=== PATIENT | female | born 1980 | race Caucasian/White ===

== ENCOUNTER 2019-07-16 07:10 | Day surgery (SDC) | payer BC ==
[2019-07-16] MEDS ORDERED: Ondansetron 4 MG/2 ML SDV IVPUSH ONE (07:33)
[2019-07-16] MEDS ORDERED: HYDROmorphone 0.5 MG/0.5 ML Syringe IVPUSH ONE ×2 (07:33→08:44)
[2019-07-16] MEDS ORDERED: Sodium Chloride 0.9% 10 ML Syringe FLUSH PRN (07:33)
[2019-07-16] MEDS ORDERED: Sodium Chloride 0.9% 1,000 ML IV SCH ×2 (07:45→10:45)
--- NOTE | 2019-07-16 09:41 | EDM.PDOC ---
ED HPI GENERAL MEDICAL PROBLEM - General Chief Complaint: Abdominal Pain Stated Complaint: SEVERE ABDOMINAL PAIN Time Seen by Provider: 07/16/19 07:25 Source of Information: Reports: Patient, RN Notes Reviewed - History of Present Illness INITIAL COMMENTS - FREE TEXT/NARRATIVE: 38-year-old female started having upper abdominal pain about 8-10 days ago. Has become much more severe over the past 2 or 3 days. She was seen at [facility] yesterday afternoon or early evening and was informed "labs were normal" at that time. However the pain continued to worsen during the night and she has been vomiting now for the last day or so as well. She vomited bile during the night and again this morning. No fever or chills. The pain does radiate to her back. She still does have her gallbladder. No chest pain or difficulty breathing. Right Upper Abdomen Pain Score (Numeric/FACES): 9 - Related Data Allergies Allergy/AdvReac Type Severity Reaction Status Date / Time No Known Allergies Allergy Verified 07/16/19 07:23 Home Meds: Home Meds FLUoxetine HCl [Prozac] 20 mg PO DAILY 07/16/19 [History] Past Medical History Psychiatric History: Reports: Anxiety - Past Surgical History Musculoskeletal Surgical History: Reports: ORIF Social & Family History - Tobacco Use Smoking Status *Q: Never Smoker - Caffeine Use Caffeine Use: Reports: Coffee - Recreational Drug Use Recreational Drug Use: No ED ROS GENERAL - Review of Systems Review Of Systems: See Below Constitutional: Reports: Chills. Denies: Fever HEENT: Denies: Sinus Problem, Throat Pain Respiratory: Denies: Shortness of Breath Cardiovascular: Denies: Chest Pain GI/Abdominal: Reports: Abdominal Pain (severe, upper abd), Nausea, Vomiting. Denies: Diarrhea : Reports: No Symptoms Musculoskeletal: Reports: Back Pain Skin: Reports: No Symptoms Neurological: Reports: No Symptoms ED EXAM, GI/ABD - Physical Exam Exam: See Below General Appearance: Alert, Moderate Distress Eyes: Bilateral: Normal Appearance Throat/Mouth: Normal Inspection, Normal Oropharynx Head: Atraumatic Neck: Supple Respiratory/Chest: No Respiratory Distress, Lungs Clear, Normal Breath Sounds Cardiovascular: Regular Rate, Rhythm GI/Abdominal Exam: Soft, Guarding, Tender (Markedly tenderness right upper quadrant and upper mid abdomen, mild tenderness mid abdomen and left abdomen. Lower abdomen nontender). No: Rebound (Mild) Back Exam: No: CVA Tenderness (L), CVA Tenderness (R) Extremities: Normal Inspection, Normal Range of Motion Neurological: Alert, Oriented, No Motor/Sensory Deficits Skin Exam: Warm, Dry, Normal Color Course - Vital Signs Last Recorded V/S: Last Vital Signs Temp 99.1 F 07/16/19 17:30 Pulse 65 07/16/19 17:31 Resp 16 07/16/19 17:30 BP 104/56 L 07/16/19 19:03 Pulse Ox 95 07/16/19 17:31 - Orders/Labs/Meds Orders: Active Orders 24 hr Category Date Time Status Ready for Discharge [RC] PER UNIT ROUTINE Care 07/16/19 16:46 Active Labs: Laboratory Tests 07/16/19 07/16/19 07/16/19 Range/Units 07:40 07:40 07:40 WBC 10.22 H (3.98-10.04) K/mm3 RBC 4.24 (3.98-5.22) M/mm3 Hgb 12.0 (11.2-15.7) gm/dl Hct 36.6 (34.1-44.9) % MCV 86.3 (79.4-94.8) fl MCH 28.3 (25.6-32.2) pg MCHC 32.8 (32.2-35.5) g/dl RDW Std Deviation 40.7 (36.4-46.3) fL Plt Count 239 (182-369) K/mm3 MPV 10.3 (9.4-12.3) fl Neutrophils % (Manual) 82 H (40-60) % Band Neutrophils % 10 (0-10) % Lymphocytes % (Manual) 6 L (20-40) % Atypical Lymphs % 0 % Monocytes % (Manual) 2 (2-10) % Eosinophils % (Manual) 0 L (0.7-5.8) % Basophils % (Manual) 0 L (0.1-1.2) Platelet Estimate Adequate RBC Morph Comment Normal Sodium 138 (136-145) mEq/L Potassium 3.8 (3.5-5.1) mEq/L Chloride 104 (98-107) mEq/L Carbon Dioxide 25 (21-32) mEq/L Anion Gap 12.8 (5-15) BUN 16 (7-18) mg/dL Creatinine 0.6 (0.55-1.02) mg/dL Est Cr Clr Drug Dosing TNP Estimated GFR (MDRD) > 60 (>60) mL/min BUN/Creatinine Ratio 26.7 H (14-18) Glucose 148 H (74-106) mg/dL Calcium 9.4 (8.5-10.1) mg/dL Total Bilirubin 0.4 (0.2-1.0) mg/dL GGT 16 (5-55) U/L AST 17 (15-37) U/L ALT 29 (14-59) U/L Alkaline Phosphatase 58 (46-116) U/L C-Reactive Protein 5.3 H* (<1.0) mg/dL Total Protein 7.6 (6.4-8.2) g/dl Albumin 3.9 (3.4-5.0) g/dl Globulin 3.7 gm/dL Albumin/Globulin Ratio 1.1 (1-2) Lipase 86 (73-393) U/L Urine HCG, Qual (NEGATIVE) 07/16/19 Range/Units 11:33 WBC (3.98-10.04) K/mm3 RBC (3.98-5.22) M/mm3 Hgb (11.2-15.7) gm/dl Hct (34.1-44.9) % MCV (79.4-94.8) fl MCH (25.6-32.2) pg MCHC (32.2-35.5) g/dl RDW Std Deviation (36.4-46.3) fL Plt Count (182-369) K/mm3 MPV (9.4-12.3) fl Neutrophils % (Manual) (40-60) % Band Neutrophils % (0-10) % Lymphocytes % (Manual) (20-40) % Atypical Lymphs % % Monocytes % (Manual) (2-10) % Eosinophils % (Manual) (0.7-5.8) % Basophils % (Manual) (0.1-1.2) Platelet Estimate RBC Morph Comment Sodium (136-145) mEq/L Potassium (3.5-5.1) mEq/L Chloride (98-107) mEq/L Carbon Dioxide (21-32) mEq/L Anion Gap (5-15) BUN (7-18) mg/dL Creatinine (0.55-1.02) mg/dL Est Cr Clr Drug Dosing Estimated GFR (MDRD) (>60) mL/min BUN/Creatinine Ratio (14-18) Glucose (74-106) mg/dL Calcium (8.5-10.1) mg/dL Total Bilirubin (0.2-1.0) mg/dL GGT (5-55) U/L AST (15-37) U/L ALT (14-59) U/L Alkaline Phosphatase (46-116) U/L C-Reactive Protein (<1.0) mg/dL Total Protein (6.4-8.2) g/dl Albumin (3.4-5.0) g/dl Globulin gm/dL Albumin/Globulin Ratio (1-2) Lipase (73-393) U/L Urine HCG, Qual Negative (NEGATIVE) Meds: Medications Discontinued Medications Generic Name Dose Route Start Last Admin Trade Name Freq PRN Reason Stop Dose Admin Dexamethasone Confirm 07/16/19 12:21 Dexamethasone Administered 07/16/19 12:22 Dose 20 mg .ROUTE .STK-MED ONE Diphenhydramine HCl 25 mg 07/16/19 12:09 Benadryl IVPUSH 07/16/19 16:00 Q6H PRN pruritis Diphenhydramine HCl 25 mg 07/16/19 12:33 Benadryl IVPUSH 07/16/19 16:00 Q6H PRN Pruritis Famotidine Confirm 07/16/19 11:30 Pepcid Administered 07/16/19 11:31 Dose 20 mg .ROUTE .STK-MED ONE Fentanyl Confirm 07/16/19 11:12 Sublimaze Administered 07/16/19 11:13 Dose 250 mcg .ROUTE .STK-MED ONE Fentanyl 50 mcg 07/16/19 12:09 Sublimaze IVPUSH 07/16/19 16:00 Q5M PRN Pain Fentanyl 50 mcg 07/16/19 12:33 Sublimaze IVPUSH 07/16/19 16:00 Q5M PRN Pain Fentanyl Confirm 07/16/19 13:13 Sublimaze Administered 07/16/19 13:14 Dose 100 mcg .ROUTE .STK-MED ONE Hydromorphone HCl 0.5 mg 07/16/19 07:33 07/16/19 07:46 Dilaudid IVPUSH 07/16/19 07:34 0.5 mg ONETIME ONE Administration Hydromorphone HCl 0.5 mg 07/16/19 08:44 07/16/19 08:51 Dilaudid IVPUSH 07/16/19 08:45 0.5 mg ONETIME ONE Administration Hydromorphone HCl 0.5 mg 07/16/19 12:09 Dilaudid IVPUSH 07/16/19 16:00 Q15M PRN severe pain Hydromorphone HCl 0.5 mg 07/16/19 12:33 Dilaudid IVPUSH 07/16/19 16:00 Q15M PRN severe pain Hydromorphone HCl Confirm 07/16/19 13:01 Dilaudid Administered 07/16/19 13:02 Dose 0.5 mg .ROUTE .STK-MED ONE Sodium Chloride 1,000 mls @ 999 mls/hr 07/16/19 07:45 07/16/19 07:44 Normal Saline IV 999 mls/hr ONETIME [facility] Administration Piperacillin Sod/Tazobactam 100 mls @ 25 mls/hr 07/16/19 10:21 07/16/19 10:39 Sod 4.5 gm/ Sodium Chloride IV 07/16/19 14:20 25 mls/hr ONETIME ONE Administration Sodium Chloride 1,000 mls @ 150 mls/hr 07/16/19 10:45 07/16/19 10:38 Normal Saline IV 150 mls/hr ASDIRECTED [facility] Administration Lactated Ringer's 1,000 mls @ 999 mls/hr 07/16/19 11:10 07/16/19 11:20 Ringers, Lactated IV 07/16/19 12:10 999 mls/hr .BOLUS ONE Administration Lidocaine HCl Confirm 07/16/19 11:12 Xylocaine-Mpf 1% Administered 07/16/19 11:13 Dose 4 mls @ as directed .ROUTE .STK-MED ONE Lactated Ringer's Confirm 07/16/19 12:27 Ringers, Lactated Administered 07/16/19 12:28 Dose 1,000 mls @ as directed .ROUTE .STK-MED ONE Ketorolac Tromethamine Confirm 07/16/19 11:12 Toradol Administered 07/16/19 11:13 Dose 15 mg .ROUTE .STK-MED ONE Lidocaine HCl Confirm 07/16/19 11:13 07/16/19 12:19 Xylocaine-Mpf 1% Administered 07/16/19 11:14 34 ml Dose Administration 30 ml .ROUTE .STK-MED ONE Midazolam HCl Confirm 07/16/19 11:12 Versed 1 Mg/Ml Administered 07/16/19 11:13 Dose 2 mg .ROUTE .STK-MED ONE Ondansetron HCl 4 mg 07/16/19 07:33 07/16/19 07:45 Zofran IVPUSH 07/16/19 07:34 4 mg ONETIME ONE Administration Ondansetron HCl Confirm 07/16/19 11:12 Zofran Administered 07/16/19 11:13 Dose 4 mg .ROUTE .STK-MED ONE Ondansetron HCl 4 mg 07/16/19 12:09 Zofran IVPUSH 07/16/19 18:00 ONETIME PRN Nausea/Vomiting Oxycodone/Acetaminophen 1 tab 07/16/19 18:46 07/16/19 18:58 Percocet 325-5 Mg PO 1 tab Q6H PRN Administration Pain Propofol Confirm 07/16/19 11:11 Diprivan 20 Ml Administered 07/16/19 11:12 Dose 200 mg .ROUTE .STK-MED ONE Rocuronium [place] Confirm 07/16/19 11:12 Zemuron Administered 07/16/19 11:13 Dose 50 mg .ROUTE .STK-MED ONE Sodium Chloride 10 ml 07/16/19 07:33 07/16/19 07:47 Saline Flush FLUSH 10 ml ASDIRECTED PRN Administration Keep Vein Open - Re-Assessments/Exams Free Text/Narrative Re-Assessment/Exam: 07/16/19 10:12. White blood count did come back mildly elevated with a left shift, C reactive protein also elevated. Given a ALT, GGT lipase all normal. See reported labs for details. Dominant gallbladder has come back showing a thickened wall and gallbladder filled with material compatible with sludge, possible gallstones or even pus. Findings highly suspicious for acute cholecystitis. No biliary duct dilatation. See Radiology report for details. I have discussed this with Dr Recinos, double end production grinder for General Surgery. He has requested to have Dr Koko MD General Surgeon come over to see pt for planned cholecystectomy. I have notified patient, have ordered IV zosyn. She feels better after multiple doses of nausea and pain medication over the past 2-3 hours. 07/16/19 10:36. Discussed with Dr Sutherland, he is here to see patient at this time. He will be taking her to surgery. Departure - Departure Time of Disposition: 10:20 Disposition: DC/Tfer to [facility] Condition: Fair Clinical Impression: Cholecystitis - Discharge Information
--- NOTE | 2019-07-16 09:46 | US ---
Limited abdominal ultrasound: Multiple real-time images of the upper right abdomen were obtained. Visualized portions of the pancreas are within normal limits. Liver shows no discrete abnormality. Right kidney shows no hydronephrosis or mass and as a length of 11.3 cm. Inferior vena cava is patent. Portal vein is patent. Gallbladder is filled with material. Gallbladder wall is very thickened. No biliary duct dilatation is seen. Impression: 1. Gallbladder wall is thickened. Gallbladder is filled with material which could represent sludge, gallstones or even pus. Findings are highly suspicious for acute cholecystitis. 2. No biliary duct dilatation is seen. Other portions of the right upper quadrant abdominal ultrasound are unremarkable. Diagnostic code #5
[2019-07-16] MEDS ORDERED: Piperacillin/Tazobactam 4.5 GM in Sodium Chloride 0.9% 100 ML IV ONE (10:21)
[2019-07-16] MEDS ORDERED: Lactated Ringers 1,000 ML IV ONE (11:10)
[2019-07-16] MEDS ORDERED: Propofol 200 MG/20 ML SDV ONE (11:11)
[2019-07-16] MEDS ORDERED: Midazolam 1 MG/ML 2 ML SDV ONE (11:12)
[2019-07-16] MEDS ORDERED: Rocuronium 50 MG/5 ML Vial ONE (11:12)
[2019-07-16] MEDS ORDERED: Ondansetron 4 MG/2 ML SDV ONE (11:12)
[2019-07-16] MEDS ORDERED: Lidocaine 1% 4 ML ONE (11:12)
[2019-07-16] MEDS ORDERED: Ketorolac 15 MG/ML SDV ONE (11:12)
[2019-07-16] MEDS ORDERED: fentaNYL 250 MCG/5 ML SDV ONE (11:12)
[2019-07-16] MEDS ORDERED: Lidocaine 1% 30 ML SDV ONE (11:13)
[2019-07-16] MEDS ORDERED: Famotidine 20 MG/2 ML SDV ONE (11:30)
--- NOTE | 2019-07-16 11:35 | PCM.PREANE ---
Preanesthetic Assessment - Procedure Proposed Procedure: Laparoscopic Cholecystectomy - Anesthesia/Transfusion/Family Hx Anesthesia History: Prior Anesthesia Without Reaction Family History of Anesthesia Reaction: No - Review of Systems General: Fatigue, Chills Pulmonary: No Symptoms Cardiovascular: No Symptoms Gastrointestinal: Abdominal Pain (Severe), Nausea, Vomiting Neurological: No Symptoms Other: Reports: Depression, Anxiety - Physical Assessment NPO Status Date: 07/16/19 NPO Status Time: 02:00 Vital Signs: Last Vital Signs Temp 36.9 C 07/16/19 07:20 Pulse 69 07/16/19 07:20 Resp 20 07/16/19 07:20 BP 124/77 07/16/19 07:20 Pulse Ox 98 07/16/19 07:20 Height: 1.68 m Weight: 90.265 kg ASA Class: 2 Mental Status: Alert & Oriented x3 Airway Class: Mallampati = 2 Dentition: Reports: Normal Dentition Thyro-Mental Finger Breadths: 3 Mouth Opening Finger Breadths: 3 ROM/Head Extension: Full Lungs: Clear to Auscultation, Normal Respiratory Effort Cardiovascular: Regular Rate, Regular Rhythm - Lab Values: Laboratory Last Values WBC 10.22 K/mm3 (3.98-10.04) H 07/16/19 07:40 RBC 4.24 M/mm3 (3.98-5.22) 07/16/19 07:40 Hgb 12.0 gm/dl (11.2-15.7) 07/16/19 07:40 Hct 36.6 % (34.1-44.9) 07/16/19 07:40 MCV 86.3 fl (79.4-94.8) 07/16/19 07:40 MCH 28.3 pg (25.6-32.2) 07/16/19 07:40 MCHC 32.8 g/dl (32.2-35.5) 07/16/19 07:40 RDW Std Deviation 40.7 fL (36.4-46.3) 07/16/19 07:40 Plt Count 239 K/mm3 (182-369) 07/16/19 07:40 MPV 10.3 fl (9.4-12.3) 07/16/19 07:40 Neutrophils % (Manual) 82 % (40-60) H 07/16/19 07:40 Band Neutrophils % 10 % (0-10) 07/16/19 07:40 Lymphocytes % (Manual) 6 % (20-40) L 07/16/19 07:40 Atypical Lymphs % 0 % 07/16/19 07:40 Monocytes % (Manual) 2 % (2-10) 07/16/19 07:40 Eosinophils % (Manual) 0 % (0.7-5.8) L 07/16/19 07:40 Basophils % (Manual) 0 (0.1-1.2) L 07/16/19 07:40 Platelet Estimate Adequate 07/16/19 07:40 RBC Morph Comment Normal 07/16/19 07:40 Sodium 138 mEq/L (136-145) 07/16/19 07:40 Potassium 3.8 mEq/L (3.5-5.1) 07/16/19 07:40 Chloride 104 mEq/L (98-107) 07/16/19 07:40 Carbon Dioxide 25 mEq/L (21-32) 07/16/19 07:40 Anion Gap 12.8 (5-15) 07/16/19 07:40 BUN 16 mg/dL (7-18) 07/16/19 07:40 Creatinine 0.6 mg/dL (0.55-1.02) 07/16/19 07:40 Est Cr Clr Drug Dosing TNP 07/16/19 07:40 Estimated GFR (MDRD) > 60 mL/min (>60) 07/16/19 07:40 BUN/Creatinine Ratio 26.7 (14-18) H 07/16/19 07:40 Glucose 148 mg/dL (74-106) H 07/16/19 07:40 Calcium 9.4 mg/dL (8.5-10.1) 07/16/19 07:40 Total Bilirubin 0.4 mg/dL (0.2-1.0) 07/16/19 07:40 GGT 16 U/L (5-55) 07/16/19 07:40 AST 17 U/L (15-37) 07/16/19 07:40 ALT 29 U/L (14-59) 07/16/19 07:40 Alkaline Phosphatase 58 U/L (46-116) 07/16/19 07:40 C-Reactive Protein 5.3 mg/dL (<1.0) H* 07/16/19 07:40 Total Protein 7.6 g/dl (6.4-8.2) 07/16/19 07:40 Albumin 3.9 g/dl (3.4-5.0) 07/16/19 07:40 Globulin 3.7 gm/dL 07/16/19 07:40 Albumin/Globulin Ratio 1.1 (1-2) 07/16/19 07:40 Lipase 86 U/L (73-393) 07/16/19 07:40 - Allergies Allergies/Adverse Reactions: Allergies Allergy/AdvReac Type Severity Reaction Status Date / Time No Known Allergies Allergy Verified 07/16/19 07:23 - Anesthesia Plan Pre-Op Medication Ordered: Anxiolytic, Other (Famotadine 20mg IV ) - Acknowledgements Anesthesia Type Planned: General Anesthesia (RSI) Pt an Appropriate Candidate for the Planned Anesthesia: Yes Alternatives and Risks of Anesthesia Discussed w Pt/Guardian: Yes Pt/Guardian Understands and Agrees with Anesthesia Plan: Yes PreAnesthesia Questionnaire Psychiatric History: Reports: Anxiety - Past Surgical History Musculoskeletal Surgical History: Reports: ORIF - SUBSTANCE USE Smoking Status *Q: Never Smoker Recreational Drug Use History: No - HOME MEDS Home Medications: Home Meds FLUoxetine HCl [Prozac] 20 mg PO DAILY 07/16/19 [History] - CURRENT (IN HOUSE) MEDS Current Meds: Current Medications Sodium Chloride (Normal Saline) 1,000 mls @ 999 mls/hr IV ONETIME [facility] Last Admin: 07/16/19 07:44 Dose: 999 mls/hr Piperacillin Sod/Tazobactam (Sod 4.5 gm/ Sodium Chloride) 100 mls @ 25 mls/hr IV ONETIME ONE Stop: 07/16/19 14:20 Last Admin: 07/16/19 10:39 Dose: 25 mls/hr Sodium Chloride (Normal Saline) 1,000 mls @ 150 mls/hr IV ASDIRECTED [facility] Last Admin: 07/16/19 10:38 Dose: 150 mls/hr Lactated Ringer's (Ringers, Lactated) 1,000 mls @ 999 mls/hr IV .BOLUS ONE Stop: 07/16/19 12:10 Sodium Chloride (Saline Flush) 10 ml FLUSH ASDIRECTED PRN PRN Reason: Keep Vein Open Last Admin: 07/16/19 07:47 Dose: 10 ml Discontinued Medications Famotidine (Pepcid) Confirm Administered Dose 20 mg .ROUTE .STK-MED ONE Stop: 07/16/19 11:31 Fentanyl (Sublimaze) Confirm Administered Dose 250 mcg .ROUTE .STK-MED ONE Stop: 07/16/19 11:13 Hydromorphone HCl (Dilaudid) 0.5 mg IVPUSH ONETIME ONE Stop: 07/16/19 07:34 Last Admin: 07/16/19 07:46 Dose: 0.5 mg Hydromorphone HCl (Dilaudid) 0.5 mg IVPUSH ONETIME ONE Stop: 07/16/19 08:45 Last Admin: 07/16/19 08:51 Dose: 0.5 mg Lidocaine HCl (Xylocaine-Mpf 1%) Confirm Administered Dose 4 mls @ as directed .ROUTE .STK-MED ONE Stop: 07/16/19 11:13 Ketorolac Tromethamine (Toradol) Confirm Administered Dose 15 mg .ROUTE .STK- MED ONE Stop: 07/16/19 11:13 Lidocaine HCl (Xylocaine-Mpf 1%) Confirm Administered Dose 30 ml .ROUTE .STK- MED ONE Stop: 07/16/19 11:14 Midazolam HCl (Versed 1 Mg/Ml) Confirm Administered Dose 2 mg .ROUTE .STK-MED ONE Stop: 07/16/19 11:13 Ondansetron HCl (Zofran) 4 mg IVPUSH ONETIME ONE Stop: 07/16/19 07:34 Last Admin: 07/16/19 07:45 Dose: 4 mg Ondansetron HCl (Zofran) Confirm Administered Dose 4 mg .ROUTE .STK-MED ONE Stop: 07/16/19 11:13 Propofol (Diprivan 20 Ml) Confirm Administered Dose 200 mg .ROUTE .STK-MED ONE Stop: 07/16/19 11:12 Rocuronium [place] (Zemuron) Confirm Administered Dose 50 mg .ROUTE .STK-MED ONE Stop: 07/16/19 11:13
--- NOTE | 2019-07-16 11:36 | PCM.CONS ---
H&P History of Present Illness - General Date of Service: 07/16/19 Admit Problem/Dx: Admission Diagnosis/Problem Admission Diagnosis/Problem Cholecystitis Source of Information: Patient History Limitations: Reports: No Limitations - History of Present Illness Onset of Symptoms: Reports: Sudden, Other (07/11/2019) Symptom Onset Date: 07/11/19 Duration of Symptoms: Reports: Constant, Waxing/Waning Location: Reports: Abdomen (Epigastric and right upper quadrant) Quality: Reports: Burning, Sharp Severity: Severe Improves with: Reports: None Worsens with: Reports: Eating Context: Reports: Other (None) Associated Symptoms: Reports: Nausea/Vomiting, Other (diarrhea) Right Upper Abdomen Pain Score (Numeric/FACES): 9 - Related Data Allergies/Adverse Reactions: Allergies Allergy/AdvReac Type Severity Reaction Status Date / Time No Known Allergies Allergy Verified 07/16/19 07:23 Home Medications: Home Meds FLUoxetine HCl [Prozac] 20 mg PO DAILY 07/16/19 [History] Past Medical History Psychiatric History: Reports: Anxiety - Past Surgical History Musculoskeletal Surgical History: Reports: ORIF Social & Family History - Tobacco Use Smoking Status *Q: Never Smoker - Caffeine Use Caffeine Use: Reports: Coffee - Recreational Drug Use Recreational Drug Use: No H&P Review of Systems - Review of Systems: Review Of Systems: See Below General: Reports: No Symptoms HEENT: Reports: No Symptoms Pulmonary: Reports: No Symptoms Cardiovascular: Reports: No Symptoms Gastrointestinal: Reports: Abdominal Pain, Vomiting Genitourinary: Reports: No Symptoms Musculoskeletal: Reports: No Symptoms Skin: Reports: No Symptoms Psychiatric: Reports: No Symptoms Neurological: Reports: No Symptoms Hematologic/Lymphatic: Reports: No Symptoms Immunologic: Reports: No Symptoms Exam - Exam Exam: See Below - Vital Signs Vital Signs: Last Vital Signs Temp 98.5 F 07/16/19 07:20 Pulse 69 07/16/19 07:20 Resp 20 07/16/19 07:20 BP 124/77 07/16/19 07:20 Pulse Ox 98 07/16/19 07:20 Weight: 90.265 kg - Exam General: Alert, Oriented, Cooperative, Moderate Distress HEENT: Conjunctiva Clear, Mucosa Moist & Strum Lungs: Clear to Auscultation, Normal Respiratory Effort Cardiovascular: Regular Rate, Regular Rhythm GI/Abdominal Exam: Soft, No Organomegaly, No Distention, No Mass, Tender, Other (tender to palpation in the right upper quadrant and epigastrium. No rebound tenderness) - Patient Data Lab Results Last 24 hrs: Laboratory Results - last 24 hr 07/16/19 07/16/19 07/16/19 Range/Units 07:40 07:40 07:40 WBC 10.22 H (3.98-10.04) K/mm3 RBC 4.24 (3.98-5.22) M/mm3 Hgb 12.0 (11.2-15.7) gm/dl Hct 36.6 (34.1-44.9) % MCV 86.3 (79.4-94.8) fl MCH 28.3 (25.6-32.2) pg MCHC 32.8 (32.2-35.5) g/dl RDW Std Deviation 40.7 (36.4-46.3) fL Plt Count 239 (182-369) K/mm3 MPV 10.3 (9.4-12.3) fl Neutrophils % (Manual) 82 H (40-60) % Band Neutrophils % 10 (0-10) % Lymphocytes % (Manual) 6 L (20-40) % Atypical Lymphs % 0 % Monocytes % (Manual) 2 (2-10) % Eosinophils % (Manual) 0 L (0.7-5.8) % Basophils % (Manual) 0 L (0.1-1.2) Platelet Estimate Adequate RBC Morph Comment Normal Sodium 138 (136-145) mEq/L Potassium 3.8 (3.5-5.1) mEq/L Chloride 104 (98-107) mEq/L Carbon Dioxide 25 (21-32) mEq/L Anion Gap 12.8 (5-15) BUN 16 (7-18) mg/dL Creatinine 0.6 (0.55-1.02) mg/dL Est Cr Clr Drug Dosing TNP Estimated GFR (MDRD) > 60 (>60) mL/min BUN/Creatinine Ratio 26.7 H (14-18) Glucose 148 H (74-106) mg/dL Calcium 9.4 (8.5-10.1) mg/dL Total Bilirubin 0.4 (0.2-1.0) mg/dL GGT 16 (5-55) U/L AST 17 (15-37) U/L ALT 29 (14-59) U/L Alkaline Phosphatase 58 (46-116) U/L C-Reactive Protein 5.3 H* (<1.0) mg/dL Total Protein 7.6 (6.4-8.2) g/dl Albumin 3.9 (3.4-5.0) g/dl Globulin 3.7 gm/dL Albumin/Globulin Ratio 1.1 (1-2) Lipase 86 (73-393) U/L Result Diagrams: 07/16/19 07:40 07/16/19 07:40 Imaging Impressions Last 24 hrs: RUQ Ultrasound shows gallbladder wall thickening and debris. Findings are concerning for acute cholecystitis. Consult PN Assessment/Plan Procedures: Procedures URINE TEST (03/06/19) Problem List Initiated/Reviewed/Updated: Yes My Orders Last 24 Hours: My Active Orders 07/16/19 11:21 Admission Status [Patient Status] [ADT] Routine 07/16/19 11:22 Schedule Procedure [COMM] Stat 07/16/19 11:27 Patient to Empty Bladder [RC] ASDIRECTED RT Incentive Spirometry [RC] Q2HWA Verify Patient Consent Obtain [RC] ASDIRECTED Sequential Compression Device [OM.PC] Routine Resuscitation Status Routine 07/16/19 11:30 Antiembolic Devices [RC] PER UNIT ROUTINE Plan: Based on exam and imaging findings, the patient likely has acute cholecystitis. I recommended we proceed with cholecystectomy. Patient agreed. I discussed Risks, benefits and alternatives to the procedure. Risks discussed include but not limited to injury to the bile duct, injury to other surrounding structures including bowel, liver, bile leak, wound complications, infection, bleeding, reaction to anesthetics, increased risk for pneumonia and blood clots. The patient agreed to proceed with the procedure. Informed consent was obtained for laparoscopic cholecystectomy, possible open.
[2019-07-16] MEDS ORDERED: diphenhydrAMINE 50 MG/ML SDV IVPUSH PRN ×2 (12:09→12:33)
[2019-07-16] MEDS ORDERED: Ondansetron 4 MG/2 ML SDV IVPUSH PRN (12:09)
[2019-07-16] MEDS ORDERED: HYDROmorphone 0.5 MG/0.5 ML Syringe IVPUSH PRN ×2 (12:09→12:33)
[2019-07-16] MEDS ORDERED: fentaNYL 100 MCG/2 ML SDV IVPUSH PRN ×2 (12:09→12:33)
[2019-07-16] MEDS ORDERED: Dexamethasone 4 MG/ML 5 ML MDV ONE (12:21)
[2019-07-16] MEDS ORDERED: Lactated Ringers 1,000 ML ONE (12:27)
[2019-07-16] MEDS ORDERED: HYDROmorphone 0.5 MG/0.5 ML Syringe ONE (13:01)
[2019-07-16] MEDS ORDERED: fentaNYL 100 MCG/2 ML SDV ONE (13:13)
--- NOTE | 2019-07-16 14:26 | PCM.POSTAN ---
POST ANESTHESIA ASSESSMENT - MENTAL STATUS Mental Status: Alert, Oriented - VITAL SIGNS Vital Signs: Last Vital Signs Temp 36.9 C 07/16/19 07:20 Pulse 69 07/16/19 07:20 Resp 20 07/16/19 07:20 BP 124/77 07/16/19 07:20 Pulse Ox 98 07/16/19 07:20 - RESPIRATORY Respiratory Status: Respiratory Rate WNL, Airway Patent, O2 Saturation Stable - CARDIOVASCULAR CV Status: Pulse Rate WNL, Blood Pressure Stable - GASTROINTESTINAL GI Status: No Symptoms - PAIN Pain Score: 0 - POST OP HYDRATION Hydration Status: Adequate & Stable
--- NOTE | 2019-07-16 14:59 | PCM48HPAN ---
Post Anesthesia Note - EVALUATION WITHIN 48HRS OF ANESTHETIC Vital Signs in Normal Range: Yes Patient Participated in Evaluation: Yes Respiratory Function Stable: Yes Airway Patent: Yes Cardiovascular Function Stable: Yes Hydration Status Stable: Yes Pain Control Satisfactory: Yes Nausea and Vomiting Control Satisfactory: Yes Mental Status Recovered: Yes Vital Signs: Last Vital Signs Temp 37.2 C 07/16/19 14:45 Pulse 67 07/16/19 14:45 Resp 13 07/16/19 14:45 BP 96/59 L 07/16/19 14:45 Pulse Ox 96 07/16/19 14:45
[2019-07-16] MEDS ORDERED: Acetaminophen/oxyCODONE 325-5 MG Tab PO PRN (18:46)
--- NOTE | 2019-07-16 21:58 | OR ---
DATE OF OPERATION: 07/16/2019 SURGEON: Abel Sutherland MD PREOPERATIVE DIAGNOSIS: Acute cholecystitis. POSTOPERATIVE DIAGNOSIS: Acute cholecystitis. OPERATION PERFORMED: Laparoscopic cholecystectomy. ANESTHESIA: General endotracheal. FINDINGS: 1. Severely distended and inflamed gallbladder. 2. Cholelithiasis. ASSISTANTS: This case required skilled assistance of Kim Fierro and James Loving. The assistants helped with patient positioning and managing and holding the laparoscopic camera as well as trocars during the case. INDICATIONS AND CONSENT: The patient is a 38-year-old female, who had acute onset of right upper quadrant abdominal pain about 1 week ago after having a meal. The patient's pain persisted over the ensuing days until yesterday where the pain got so severe that the patient could not stand and could not eat anything. The pain was associated with nausea and vomiting. The patient had multiple episodes of bilious vomiting. The pain was mainly located in the right upper quadrant and epigastrium, and was radiating to the right back. The patient presented to the emergency department where workup revealed normal labs including bilirubin and white count, which was 10. The patient had 1 right upper quadrant ultrasound that revealed thickened edematous and distended gallbladder consistent with a diagnosis of cholecystitis. Therefore, surgical consultation was obtained. I saw the patient in the emergency department and based on my exam and imaging findings, I believe the patient had acute cholecystitis. Therefore, I recommended operative intervention with acute cholecystectomy. We discussed in detail the indications, risks, and alternatives of this procedure. Risks discussed include, but not limited to bleeding, injury to biliary tree, injury to other intra-abdominal structures including liver and bowel, abscess, biliary leak, wound complications, as well as risks related to anesthesia including reaction to medication, blood clots, and pneumonia. The patient agreed to proceed with the procedure and informed consent was obtained. DESCRIPTION OF PROCEDURE: The patient was taken to the operating room and placed on the operating room table in supine position. Right arm was tucked. Following induction of general endotracheal anesthesia, SCDs were placed in bilateral lower extremities and the OG was placed, and the abdomen was prepped and draped in the usual sterile fashion. We began the procedure by accessing the abdomen through the cutdown method in the infraumbilical position. A Govind trocar was inserted. Then, 3 additional trocars were placed, each 5 mm, 1 was in the epigastric just caudal to the xiphoid process, 2 were placed in the right subcostal region. The 10/30 laparoscope was introduced into the abdomen. Of note, these 5 mm trocars were placed under direct vision. The laparoscope was placed back into the abdomen. The abdomen was quickly inspected. The gallbladder was noted to be very distended. Therefore, decompression was done through placement of a needle and thick viscous green bile was aspirated from the gallbladder. Gallbladder appeared to be very thickened and edematous at this time. Once the gallbladder was decompressed with the needle, needle was removed, there were no further injuries. The gallbladder fundus was grasped and elevated caudally. There were some omental adhesions to the liver that were taken down with cautery. Then, the gallbladder was grasped and using Bovie as well as [place], the gallbladder fundus was dissected in such a way as to reveal the cystic artery as well as the cystic duct. Once the dissection was done, these 2 structures were isolated. Critical view of safety was obtained and 5 mm clips were placed on the artery as well as the cystic duct, and these 2 structures were transected with endoscissors such that 2 clips remained in situ. The gallbladder was then meticulously taken off the gallbladder fossa with cautery. There was no additional injury to the liver or other structures. The gallbladder was safely removed from the gallbladder fossa. The gallbladder was placed in the EndoCatch bag. Then, there was minor spillage of gallbladder contents, just bile with no stones. Therefore, irrigation was performed, 2 L were irrigated into the abdomen and suctioned until the suction ran clear, and the gallbladder fossa as well as dissection area was inspected. There was no bleeding or leakage. At this time, the ports were removed, and 5 mm camera was placed and the gallbladder was extracted through the umbilical port and passed off for pathology. The umbilical site was closed in 2 layers, the fascia was closed with 0 Vicryl stitches in a [id number] fashion and the rest of the 5 mm incisions as well as the port site on the umbilical skin incision were closed with 4-0 Monocryl stitches and dressed with Dermabond. This marked the end of the procedure. At the end of the procedure, all instruments, sharps, and sponges were counted and found to be correct x2. The patient was awoken and taken to the PACU in stable condition. The plan is for the patient to go home today. The patient will be given Percocet to take and will be advised to take Colace to keep stools soft. The patient will be instructed not to lift more than 10 pounds for 4 weeks. The patient will follow up with me in clinic in 2 weeks for postop check. ESTIMATED BLOOD LOSS: MMODAL /[id number]
== END 2019-07-16 19:25 | disposition home or self-care (01) ==
LOC: JD.ED 07:10 → JD.SDS 11:10 → JD.OB 16:03 → JD.SDS 19:25
PROVIDERS: ATTEND Surgery
DX: K80.12 Calculus of gallbladder with acute and chronic cholecystitis without obstruction (principal); F41.9 Anxiety disorder, unspecified; Z79.899 Other long term (current) drug therapy
CPT/HCPCS: 36415; 47562; 76705; 80053; 81025; 82977; 83690; 85007; 85027; 86140; 96361; 96365; 96375; 96376; 99285; A9270; J1100; J1170; J1885; J2001; J2250; J2405; J2543; J2704; J3010; J3490; J7030; J7040; J7120; 00790; 99284